=== PATIENT | male | born 1960 | race Caucasian/White ===

== ENCOUNTER 2017-03-20 11:18 | Emergency (ER) | payer BC ==
[~2017-03-20] VITALS: Ht 167.6 cm; Wt 70.3 kg
[2017-03-20 11:18] VITALS: BP 126/76
== END 2017-03-20 11:58 | disposition home or self-care (01) ==
LOC: ER 11:22
DX: J06.9 Acute upper respiratory infection, unspecified (principal)
CPT/HCPCS: 99283; A4606; Z7610

== ENCOUNTER 2018-05-12 23:33 | Emergency (ER) | payer BC, OTHER ==
[~2018-05-12] VITALS: Ht 167.6 cm; Wt 73.5 kg
--- NOTE | 2018-05-13 | NUR ---
PT BIBSELF COMPLAINING OF COUGH AND SORE THROAT X4 DAYS AND FEVER X2 DAYS. PT STATES HIGHEST AT HOME WAS 102. PT'S CURRENT TEMP 103.3, MD AWARE. PT AAOX4. RESPIRATIONS EVEN AND UNLABORED. SKIN WARM AND INTACT. WILL CONTINUE TO MONITOR
[2018-05-13] MEDS ORDERED: ACETAMINOPHEN ES 500 MG TABLET ONE (00:07)
--- NOTE | 2018-05-13 00:10 | NUR ---
FLU SWAB COLLECTED AND SENT TO LAB
--- NOTE | 2018-05-13 00:15 | NUR ---
PT PLACED IN GOWN AND ICE PACKS APPLIED. WILL CONTINUE TO MONITOR
[2018-05-13] MEDS ORDERED: ACETAMINOPHEN 325 MG TABLET PO ONE (00:30)
--- NOTE | 2018-05-13 00:50 | NUR ---
STREP SWAB COLLECTED AND SENT TO LAB
[2018-05-13] MEDS ORDERED: IBUPROFEN 400 MG TABLET ONE (01:19)
[2018-05-13] MEDS ORDERED: IBUPROFEN 400 MG TABLET PO ONE (01:30)
--- NOTE | 2018-05-13 02:00 | NUR ---
RADIOLOGY AT BEDSIDE
--- NOTE | 2018-05-13 02:52 | NUR ---
Patient discharged to home in stable condition. Written and verbal after care instructions given. Patient verbalizes understanding of instruction. Pt ambulatory with a steady gait
[2018-05-13 02:53] VITALS: BP 113/68
[2018-05-13] MEDS ORDERED: IBUP-1955 PO (17:43)
== END 2018-05-13 02:55 | disposition home or self-care (01) ==
LOC: ER 23:36
DX: R50.9 Fever, unspecified (principal); J06.9 Acute upper respiratory infection, unspecified
CPT/HCPCS: 71045-TC; 86403-TC; 87070-TC; 87400; A4606; Z7610

== ENCOUNTER 2018-05-13 16:12 | Inpatient (IN) | payer BC, OTHER ==
[2018-05-13] VITALS (16 sets, daily range): BP systolic 109–124; BP diastolic 71–83
[~2018-05-13] VITALS: Ht 167.6 cm; Wt 72.6 kg
[2018-05-13] MEDS ORDERED: ONDANSETRON HCL/PF 4 MG/2 ML VIAL ONE (16:33)
--- NOTE | 2018-05-13 16:42 | NUR ---
PT BIB from home was here last night for fever , today c/o vomiting and abd pain and feeling weak " like passing out". alert and oriented x 4, verabally responsive and able to make needs known. on room air sating 98%, denies any pain at this time. Dr. Jasso at bedside for eval. kept comfortable, will continue to monitor accordingly.
[2018-05-13 16:54] LABS: CALCIUM, SERUM 8.4 mg/dL (8.5-10.1); CARBON DIOXIDE 25 mmol/L (21-32); CHLORIDE 100 mmol/L (98-107); CREATININE 1.7 mg/dL (0.6-1.3); GLUCOSE 171 mg/dL (74-106); POTASSIUM 3.9 mmol/L (3.5-5.1); SODIUM SERUM 136 mmol/L (136-145); UREA NITROGEN, BLOOD 15 mg/dL (7-18)
[2018-05-13 16:56] LABS: BASOPHILS % (AUTO) 0.1 % (0.0-2.0); HEMATOCRIT 45 % (39-51); HEMOGLOBIN 14.8 g/dL (13.5-17.5); LYMPHOCYTES # (AUTO) 1.1 /CMM (0.8-4.8); LYMPHOCYTES % (AUTO) 4.1 % (20.0-44.0); MEAN CORPUSCULAR HGB CONC 33 g/dl (31.0-36.0); MEAN CORPUSCULAR VOLUME 97 fL (80-96); MONOCYTES # (AUTO) 1.5 /CMM (0.1-1.30); NEUTROPHILS # (AUTO) 23.1 /CMM (1.8-8.9); NEUTROPHILS % (AUTO) 89.8 % (43.0-81.0); PLATELET COUNT (AUTO) 280 /CMM (150-450); RED BLOOD CELL COUNT(AUTO) 4.61 MIL/uL (4.5-6.0); WHITE BLOOD COUNT (AUTO) 25.7 K/uL (4.3-11.0)
[2018-05-13 17:00] LABS: ALANINE AMINOTRANSFERASE 46 U/L (12-78); ALKALINE PHOSPHATASE 100 U/L (46-116); ASPARTATE AMINOTRANSFERASE 47 U/L (15-37); BILIRUBIN,DIRECT 0.2 mg/dL (0.0-0.2); BILIRUBIN,TOTAL 0.7 mg/dL (0.2-1.0); TOTAL PROTEIN, SERUM 7.5 g/dL (6.4-8.2)
[2018-05-13] MEDS ORDERED: IV NS 0.9% 1,000 ML BAG IV ONE (17:00)
[2018-05-13] MEDS ORDERED: ONDANSETRON HCL/PF 4 MG/2 ML VIAL IVP ONE (17:00)
[2018-05-13] MEDS ORDERED: IV NS 0.9% 1,000 ML IV ONE ×2 (17:00→17:30)
[2018-05-13 17:24] LABS: BAND % (MANUAL) 5 % (0.0-5.0); LYMPHOCYTES % (MANUAL) 7 % (16-48); MONOCYTES % (MANUAL) 1 % (0-11.0); NEUTROPHILS % (MANUAL) 87 (42-76)
[2018-05-13] MEDS ORDERED: IBUP-1955 PO (17:43)
[2018-05-13] MEDS ORDERED: PIPERACILLIN /TAZOBACTAM 3.375 G in IV D5W 50 ML IV ONE (18:00)
--- NOTE | 2018-05-13 18:36 | NUR ---
Jus Evans EMPLOYEE OPERATIONS EXAMINER at bedside for central line insertion, family at bedside.
[2018-05-13] MEDS ORDERED: LIDOCAINE /MPF 1% VIAL 5 ML VIAL ONE (18:57)
--- NOTE | 2018-05-13 19:17 | NUR ---
central line inserted by Jus Evans NP.
--- NOTE | 2018-05-13 19:18 | NUR ---
Report given to heather SIGALA for vijay.
[2018-05-13] MEDS ORDERED: NOREPINEPHRINE 4 MG/4 ML AMPUL IV ONE ×2 (19:20→19:21)
[2018-05-13] MEDS ORDERED: NOREPINEPHRINE 8 MG in IV D5W 500 ML IV PRN ×2 (19:30→20:00)
[2018-05-13] MEDS ORDERED: Z GUARD REMEDY 2 OZ OINT TP PRN (20:00)
[2018-05-13] MEDS ORDERED: ONDANSETRON HCL/PF 4 MG/2 ML VIAL IVP PRN (20:00)
--- NOTE | 2018-05-13 20:04 | NUR ---
REPORT GIVEN TO ZAKIYA RAMOS FOR [facility]
--- NOTE | 2018-05-13 20:30 | NUR ---
BOX OFFICE MANAGERCREW LEAD NOTES RECEIVED PATIENT FROM ER VIA [facility]. PATIENT IS AWAKE, ALERT AND ORIENTED X4, ABLE TO VERBALIZE NEEDS. BREATHING EVEN AND NONLABORED, PLACED ON O2 VIA NC FOR COMFORT, SPO2 WNL. LEFT IJ PATENT AND INTACT, ALL PORTS FLUSHED WITH NS, ONGOING LEVOPHED DRIP CURRENTLY INFUSING @ 5MCG, WILL MONITOR BP CLOSELY. ORDERS FOR IV FLUIDS AND CVP MONITORING, WILL INITIATE. PLAN OF CARE DISCUSSED WITH THE PATIENT, WHOM VERBALIZES UNDERSTANDING. CALL LIGHT LEFT WITHIN EASY REACH, BED IN LOWEST AND LOCKED POSITION. WILL CONTINUE TO CLOSELY MONITOR THE PATIENT
[2018-05-13] MEDS: IV NS 0.9% 1,000 ML IV PRN (20:56)
[2018-05-13] MEDS: ENOXAPARIN SODIUM 40 MG/0.4 ML DISP.SYRIN SQ SCH (21:01)
[2018-05-13 21:14] LABS: HEMATOCRIT 37 % (39-51); HEMOGLOBIN 12.2 g/dL (13.5-17.5); LYMPHOCYTES % (AUTO) 3.8 % (20.0-44.0); MEAN CORPUSCULAR HGB CONC 33 g/dl (31.0-36.0); MEAN CORPUSCULAR VOLUME 96 fL (80-96); MONOCYTES # (AUTO) 1.3 /CMM (0.1-1.30); NEUTROPHILS # (AUTO) 23.3 /CMM (1.8-8.9); NEUTROPHILS % (AUTO) 91.2 % (43.0-81.0); PLATELET COUNT (AUTO) 284 /CMM (150-450); RED BLOOD CELL COUNT(AUTO) 3.83 MIL/uL (4.5-6.0); WHITE BLOOD COUNT (AUTO) 25.5 K/uL (4.3-11.0)
[2018-05-13 21:27] LABS: ALBUMIN 2.3 g/dL (3.4-5.0); BILIRUBIN,TOTAL 1.3 mg/dL (0.2-1.0); CREATININE 1.8 mg/dL (0.6-1.3); MAGNESIUM 1.5 mg/dL (1.8-2.4); PHOSPHORUS 1.7 mg/dL (2.5-4.9); POTASSIUM 4.6 mmol/L (3.5-5.1); TOTAL PROTEIN, SERUM 5.9 g/dL (6.4-8.2)
[2018-05-13] MEDS ORDERED: PIPERACILLIN /TAZOBACTAM 3.375 G VIAL IV ONE (23:02)
[2018-05-13] MEDS: PIPERACILLIN /TAZOBACTAM 3.375 G in IV D5W 50 ML IV SCH (23:03)
[2018-05-14] VITALS (84 sets, daily range): BP systolic 91–133; BP diastolic 55–85
[2018-05-14 02:34] LABS: APPEARANCE,URINE CLEAR (CLEAR); BILIRUBIN,URINE NEGATIVE (NEGATIVE); BLOOD, URINE TRACE-INTA Ery/uL (NEGATIVE); COLOR,URINE YELLOW (YELLOW); KETONES,URINE NEGATIVE (NEGATIVE); LEUKOCYTE ESTERASE ,URINE NEGATIVE (NEGATIVE); NITRITE, URINE NEGATIVE (NEGATIVE); PROTEIN,URINE NEGATIVE (NEGATIVE); UGLUCOSE NEGATIVE (NEGATIVE); UROBILINOGEN,URINE 0.2 EU/dL (0.2)
[2018-05-14 02:36] LABS: BACTERIA,URINE Rare /HPF (None Seen); RBC,URINE 0-2 /HPF (0-2); SQUAMOUS EPITHELIAL CELL,UR Rare /HPF (None Seen); WBC,URINE 0-2 /HPF (0-3)
[2018-05-14] MEDS ORDERED: PIPERACILLIN /TAZOBACTAM 3.375 G VIAL IV ONE (04:24)
[2018-05-14] MEDS ORDERED: MORPHINE SULFATE INJ 4 MG/ML DISP.SYRIN ONE (04:25)
[2018-05-14] MEDS: MORPHINE SULFATE INJ 2 MG/ML DISP.SYRIN IV PRN (04:26)
--- NOTE | 2018-05-14 04:38 | NUR ---
CROTCH BREAKER NOTES MORPHINE 2MG OUT OF STOCK, 4MG OVERRIDE PERFORMED BY CHARGE NURSE ED, 2 MG WASTED. WILL ADMINISTER AND CONTINUE CLOSE MONITORING
[2018-05-14 04:45] LABS: BASOPHILS % (AUTO) 0.1 % (0.0-2.0); HEMATOCRIT 37 % (39-51); HEMOGLOBIN 12.5 g/dL (13.5-17.5); LYMPHOCYTES # (AUTO) 1.3 /CMM (0.8-4.8); LYMPHOCYTES % (AUTO) 5.1 % (20.0-44.0); MEAN CORPUSCULAR HGB CONC 34 g/dl (31.0-36.0); MEAN CORPUSCULAR VOLUME 96 fL (80-96); MONOCYTES # (AUTO) 1.3 /CMM (0.1-1.30); MONOCYTES % (AUTO) 4.9 % (2.0-12.0); NEUTROPHILS # (AUTO) 23.9 /CMM (1.8-8.9); NEUTROPHILS % (AUTO) 89.9 % (43.0-81.0); PLATELET COUNT (AUTO) 297 /CMM (150-450); RED BLOOD CELL COUNT(AUTO) 3.88 MIL/uL (4.5-6.0); WHITE BLOOD COUNT (AUTO) 26.6 K/uL (4.3-11.0)
[2018-05-14] MEDS: PIPERACILLIN /TAZOBACTAM 3.375 G in IV D5W 50 ML IV SCH (05:08)
[2018-05-14 05:09] LABS: ALBUMIN 2.4 g/dL (3.4-5.0); BILIRUBIN,TOTAL 0.7 mg/dL (0.2-1.0); CREATININE 1.3 mg/dL (0.6-1.3); MAGNESIUM 1.9 mg/dL (1.8-2.4); PHOSPHORUS 2.1 mg/dL (2.5-4.9); TOTAL PROTEIN, SERUM 6.5 g/dL (6.4-8.2)
[2018-05-14 05:14] LABS: THYROID STIMULATING HORMONE 0.263 uIU/mL (0.358-3.74)
[2018-05-14] MEDS: ACETAMINOPHEN 325 MG TABLET PO PRN ×2 (05:37→15:49)
--- NOTE | 2018-05-14 07:00 | NUR ---
FLIGHT MANAGER CLOSING NOTES PATIENT RESTING COMFORTABLY IN BED. BEDSIDE REPORT GIVEN TO NURSE VOSS. PATIENT CONTINUES ON LEVOPHED DRIP, TITRATED DOWN TO 2MCG/MIN
--- NOTE | 2018-05-14 07:10 | NUR ---
RN INITIAL NOTES: Rec'd pt on bed, A/O x 4, denies any pain & discomfort at this time. Pt on NC at 2lpm, sating at 98%. On telemonitor, ST 105. Has L IJ TLC w/ NS x 100 cc/hr & Levo Drip x 2mcg/min. Pt also has 2 SL R AC G22 & L AC G20, flushing well w/ no s/sx of infection/infiltration. Will provide comfort & safety measures. Bed kept low & in locked pos. Call light w/in reach. Will continue to monitor & attend pt needs.
[2018-05-14] MEDS: PIPERACILLIN /TAZOBACTAM 3.375 G in IV D5W 100 ML IV SCH ×2 (08:18→17:03)
[2018-05-14] MEDS: IV NS 0.9% 1,000 ML IV PRN ×2 (08:26→18:31)
--- NOTE | 2018-05-14 08:45 | NUR ---
PINK ALERTS cleared on EMAR for pt's safety.
[2018-05-14] MEDS ORDERED: K PHOS NEUTRAL 250 MG TABLET PO ONE (10:30)
[2018-05-14] MEDS ORDERED: PIPERACILLIN /TAZOBACTAM 3.375 G in IV D5W 50 ML IV SCH (12:00)
--- NOTE | 2018-05-14 13:46 | NUR ---
Pt seen & examined by Dr. Shiva bunn/ amrtha to do Rapid Influenza Antigen A+B of the nasopharynx. Specimen collected & taken by [facility]. Addendum: 05/14/18 at 1516 by BIPIN OSBORNE RN Tried calling Julia's extension but no one is answering. Informed her via text.
--- NOTE | 2018-05-14 17:30 | NUR ---
Pt seen & examined by CELINE Garrett w/ orders to do bladder scanning. >600cc on bladder scan, peed 450cc. Per CELINE Garrett insert IFC. Pt made aware & agreed.
--- NOTE | 2018-05-14 18:47 | NUR ---
RN CLOSING NOTES: Pt remains A/O x 4. Pt tolerated NC at 2lpm, no SOB. On telemonitor, still ST 103. L IJ TLC w/ NS x 100 cc/hr & Levo Drip off at 2pm. Pt also has LFA G20, flushing well w/ no s/sx of infection/infiltration. Pt tolerated IFC as ordered. Kept well rested. Needs attended. Bed kept low & in locked pos. Call light w/in reach. Will endorse to PM RN for [facility].
--- NOTE | 2018-05-14 19:30 | NUR ---
IV THERAPY NURSE INITIAL SHIFT NOTES RECEIVED PATIENT IN BED, AWAKE, ALERT AND ORIENTED X4, ABLE TO VERBALIZE NEEDS, PATIENT'S AT BEDSIDE. PLAN OF CARE DISCUSSED WITH PATIENT AND FAMILY, BOTH VERBALIZING UNDERSTANDING REGARDING THE PLAN OF CARE, ALL PERTINENT QUESTIONS ANSWERED. TELMETRY MONITOR READS SINUS RHYTHM, HR 90 BPM AT THIS TIME. LEFT IJ TLC PATENT AND INTACT, ALL PORTS FLUSHED WITH NS, ONGOING IV FLUIDS PRESCRIBED. LEFT FA #20G PATENT AND INTACT, SL. BEE CATHETER DRAINING CLEAR YELLOW URINE VIA GRAVITY. BED IN LOWEST AND LOCKED POSITION, CALL LIGHT LEFT WITHIN EASY REACH. WILL CONTINUE TO CLOSELY MONITOR
[2018-05-14] MEDS: ENOXAPARIN SODIUM 40 MG/0.4 ML DISP.SYRIN SQ SCH (21:18)
[2018-05-15] VITALS (14 sets, daily range): BP systolic 96–125; BP diastolic 51–79
[2018-05-15] MEDS: PIPERACILLIN /TAZOBACTAM 3.375 G in IV D5W 100 ML IV SCH ×3 (00:10→17:26)
[2018-05-15] MEDS: ACETAMINOPHEN 325 MG TABLET PO PRN ×3 (00:26→17:26)
--- NOTE | 2018-05-15 01:00 | NUR ---
SHIFT PRODUCTION ASSOCIATE NOTES PATIENT NOTED WITH X1 EPISODE OF DIARRHEA, LIQUID BROWN STOOL, COLLECTED AND SENT TO LAB FOR TESTING FOR C DIFF. PATIENT PLACED ON ISOLATION FOR R/O C. DIFF. ISOLATION CART PLACED OUTSIDE OF ROOM, PATIENT'S INSTRUCTED TO WEAR PROPER PPE WHEN IN ROOM, VERBALIZING UNDERSTANDING. WILL CONTINUE TO CLOSELY MONITOR.
[2018-05-15] MEDS: IV NS 0.9% 1,000 ML IV PRN ×2 (04:26→16:05)
[2018-05-15 05:19] LABS: BASOPHILS # (AUTO) 0.1 /CMM (0.0-0.2); BASOPHILS % (AUTO) 0.5 % (0.0-2.0); EOSINOPHILS % (AUTO) 0.6 % (0.0-6.0); HEMATOCRIT 33 % (39-51); HEMOGLOBIN 10.9 g/dL (13.5-17.5); LYMPHOCYTES # (AUTO) 2.1 /CMM (0.8-4.8); LYMPHOCYTES % (AUTO) 12.2 % (20.0-44.0); MEAN CORPUSCULAR HGB CONC 34 g/dl (31.0-36.0); MEAN CORPUSCULAR VOLUME 96 fL (80-96); MONOCYTES # (AUTO) 0.9 /CMM (0.1-1.30); MONOCYTES % (AUTO) 5.1 % (2.0-12.0); NEUTROPHILS % (AUTO) 81.6 % (43.0-81.0); PLATELET COUNT (AUTO) 268 /CMM (150-450); RED BLOOD CELL COUNT(AUTO) 3.38 MIL/uL (4.5-6.0); WHITE BLOOD COUNT (AUTO) 17.2 K/uL (4.3-11.0)
[2018-05-15 05:38] LABS: CREATININE 1.1 mg/dL (0.6-1.3); MAGNESIUM 1.9 mg/dL (1.8-2.4); PHOSPHORUS 1.8 mg/dL (2.5-4.9); POTASSIUM 3.6 mmol/L (3.5-5.1)
[2018-05-15 06:34] LABS: BAND % (MANUAL) 15 % (0.0-5.0); LYMPHOCYTES % (MANUAL) 12 % (16-48); MONOCYTES % (MANUAL) 9 % (0-11.0); NEUTROPHILS % (MANUAL) 64 (42-76)
[2018-05-15] MEDS ORDERED: MORPHINE SULFATE INJ 4 MG/ML DISP.SYRIN ONE (06:36)
[2018-05-15] MEDS: MORPHINE SULFATE INJ 2 MG/ML DISP.SYRIN IV PRN (06:38)
--- NOTE | 2018-05-15 07:00 | NUR ---
BATCH TESTER CLOSING SHIFT NOTES BEDSIDE REPORT GIVEN TO DAY SHIFT NURSE FOR CONTINUITY OF CARE. NO FURTHER EPISODES OF DIARRHEA NOTED, PATIENT NOTING IMPROVEMENT IN HEADACHE AFTER MORPHINE IVP ADMINISTERED.
--- NOTE | 2018-05-15 07:20 | NUR ---
RN NOTES RECEIVED PATIENT IN BED, AWAKE, A/0 X4, ABLE TO MAKE NEEDS KNOWN, NOT ON ANY FORM OF DISTRESS, WITH OXYGEN SUPPORT VIA NASAL CANNULA AT 2LPM. SATING WELL. ON TELE MONITORING: SINUS TACHY HR 102 AT THIS TIME. LEFT IJ TLC IN PLACE AND INTACT, ALL PORTS FLUSHED WITH NS AND ARE ALL PATENT. WITH ONGOING IV FLUIDS RUNNING ORDERED. LEFT FA #20G IN PLACE, INTACT, PATENT UPON FLUSHING, SL. CENTRAL VENOUS PRESSURE CHECKED INITIALLY WITH ZULAY,RN- WAS AT 4 AT THIS TIME. WITH BEE CATHETER IN PLACE AND INTACT, DRAINING WELL TO CLEAR YELLOW URINE VIA GRAVITY. SAFETY MEASURES OBSERVED AND MAINTAINED, BED IN LOWEST AND LOCKED POSITION, CALL LIGHT PLACED WITHIN EASY REACH. PATIENT'S AT BEDSIDE. PLAN OF CARE DISCUSSED WITH PATIENT AND FAMILY, BOTH VERBALIZING UNDERSTANDING, ALL QUESTIONS ADDRESSED, ENCOURAGE TO VERBALIZE ANY CONCERN, WILL CONTINUE TO MONITOR CLOSELY
[2018-05-15] MEDS ORDERED: MORPHINE SULFATE INJ 4 MG/ML DISP.SYRIN IV PRN (08:30)
[2018-05-15] MEDS ORDERED: HYDROMORPHONE 1 MG/1 ML DISP.SYRIN IV PRN (08:30)
--- NOTE | 2018-05-15 12:10 | NUR ---
RN NOTES PATIENT TRANSFERRED OUT TO LOWER LEVEL ACUITY.
[2018-05-15] MEDS ORDERED: K PHOS NEUTRAL 250 MG TABLET PO ONE (13:30)
[2018-05-15] MEDS ORDERED: SALINE NASAL SPRAY 0.65% 1 BOTTLE BOTTLE NS PRN (16:30)
--- NOTE | 2018-05-15 19:47 | NUR ---
RN NOTES PATIENT ENDORSED FOR CONTINUITY OF CARE. NO ACUTE CHANGES WITHIN THE SHIFT. ALL NURSING NEEDS ATTENDED AND MET. SAFETY PRECAUTIONS IN PLACE AT ALL TIMES. CALL LIGHT WITHIN REACH
--- NOTE | 2018-05-15 20:30 | NUR ---
RN OPENING NOTES REPORT RECEIVED FROM NEGRA RN. PATIENT A/A/O X3, ABLE TO MAKE NEEDS KNOWN. BREATHING EVEN & UNLABORED, TOLERATING ROOM AIR. DENIES SOB OR DIFFICULTY BREATHING. ON TELE W/ SINUS RHYTHM, HR 86. LEFT HAND IV #20 & LEFT IJ INTACT & PATENT W/ DRESSING CDI & IVF NS INFUSING WELL @ 100 ML/HR. BEE CATH DRAINING YELLOW URINE. DENIES ANY PAIN OR DISCOMFORT @ THIS TIME. SAFETY MEASURES IN PLACE W/ SIDE RAILS UP & BED LOCKED IN LOWEST POSITION. INSTRUCTED TO USE CALL LIGHT FOR ASSISTANCE. @ BEDSIDE. WILL CONTINUE TO MONITOR.
[2018-05-15] MEDS: TAMSULOSIN 0.4 MG CAP.SR.24H PO SCH (22:24)
[2018-05-15] MEDS: ENOXAPARIN SODIUM 40 MG/0.4 ML DISP.SYRIN SQ SCH (22:25)
[2018-05-16] VITALS: BP 111/75
[2018-05-16] MEDS: PIPERACILLIN /TAZOBACTAM 3.375 G in IV D5W 100 ML IV SCH ×3 (02:02→16:46)
[2018-05-16] MEDS: ACETAMINOPHEN 325 MG TABLET PO PRN ×2 (03:05→15:13)
[2018-05-16 04:00] VITALS: BP 109/70
[2018-05-16] MEDS: IV NS 0.9% 1,000 ML IV PRN ×2 (04:59→15:16)
[2018-05-16 06:32] LABS: BASOPHILS # (AUTO) 0.1 /CMM (0.0-0.2); BASOPHILS % (AUTO) 0.6 % (0.0-2.0); EOSINOPHILS % (AUTO) 1.4 % (0.0-6.0); HEMATOCRIT 34 % (39-51); HEMOGLOBIN 11.4 g/dL (13.5-17.5); LYMPHOCYTES # (AUTO) 2.2 /CMM (0.8-4.8); LYMPHOCYTES % (AUTO) 17.9 % (20.0-44.0); MEAN CORPUSCULAR HGB CONC 33 g/dl (31.0-36.0); MEAN CORPUSCULAR VOLUME 96 fL (80-96); MONOCYTES # (AUTO) 0.6 /CMM (0.1-1.30); MONOCYTES % (AUTO) 5.2 % (2.0-12.0); NEUTROPHILS # (AUTO) 9.1 /CMM (1.8-8.9); NEUTROPHILS % (AUTO) 74.9 % (43.0-81.0); PLATELET COUNT (AUTO) 325 /CMM (150-450); RED BLOOD CELL COUNT(AUTO) 3.57 MIL/uL (4.5-6.0); WHITE BLOOD COUNT (AUTO) 12.2 K/uL (4.3-11.0)
[2018-05-16 06:37] LABS: CALCIUM, SERUM 8.2 mg/dL (8.5-10.1); CREATININE 0.9 mg/dL (0.6-1.3); MAGNESIUM 1.9 mg/dL (1.8-2.4); PHOSPHORUS 2.6 mg/dL (2.5-4.9); POTASSIUM 3.6 mmol/L (3.5-5.1)
--- NOTE | 2018-05-16 07:38 | NUR ---
STOCKROOM SELECTOR NOTES RECEIVED PATIENT IN BED . PATIENT A/A/O X3, ABLE TO MAKE NEEDS KNOWN. AT BEDSIDE BREATHING EVEN & UNLABORED, TOLERATING ROOM AIR. DENIES SOB OR DIFFICULTY BREATHING. ON TELE W/ SINUS RHYTHM LEFT HAND IV #20 & LEFT IJ INTACT & PATENT W/ DRESSING CDI & IVF NS INFUSING WELL @ 100 ML/HR. BEE CATH DRAINING YELLOW URINE. DENIES ANY PAIN OR DISCOMFORT @ THIS TIME. SAFETY MEASURES IN PLACE W/ SIDE RAILS UP & BED LOCKED IN LOWEST POSITION. INSTRUCTED TO USE CALL LIGHT FOR ASSISTANCE. WILL CONTINUE TO MONITOR.PLAN OF CARE DISCUSSED WITH PATIENT
[2018-05-16 08:00] VITALS: BP 117/79
--- NOTE | 2018-05-16 11:53 | NUR ---
GAUGER CHIEF DELIVERY NOTE OFFERED TO SIT ON CHAIR ,STATED THAT WILL DO LATTER ,WILL CONT TO MONITOR, CONT ON IVF ORDERED, NOT IN DISTRESS , AT BEDSIDE Addendum: 05/16/18 at 1245 by KINGA KIRK RN OFFERED AGAIN TO SIT ON CHAIR AND HAVE LUNCH, STATED NOT NOW ,WILL TRY LATTER ON
[2018-05-16 12:00] VITALS: BP 117/78
--- NOTE | 2018-05-16 14:15 | NUR ---
BOX TOE MAKER NOTE PER DR FUNES OK TO REMOVE BEE CATH AND OK TO HAVE PT
--- NOTE | 2018-05-16 15:00 | NUR ---
WIRE PREPARATION MACHINE TENDER NOTE BEE CAT REMOVED ORDERED PT EVAL DONE, ABLE YO AMBULATE WELL WITH WALKER WILL F\U
[2018-05-16 16:00] VITALS: BP 120/80
--- NOTE | 2018-05-16 17:15 | NUR ---
LINING PRESSER NOTE ABLE TO URINATE WELL,200 ML OF YELLOW COLOR URINE KEEP CLEAN DRY ,ALL NEEDS ATTENDED
--- NOTE | 2018-05-16 18:30 | NUR ---
HORSER UP NOTE REFUSED TO HAVE DINNER, STATED THAT HIS WILL BRING FOOD,ALSO NO C\O PIAIN OR DISCOMFORT AT THIS TIME ,ON IVF ORDERED
[2018-05-16 20:00] VITALS: BP 121/81
--- NOTE | 2018-05-16 20:00 | NUR ---
TELE/RN NOTES: RECEIVED PT. IN BED W/ HOB ELEVATED. ON TELE MONITOR W/ SR 79. PRESENT AT BEDSIDE. A/O X 4. ABLE TO MAKE NEEDS KNOWN. HAS LIJ W/ TLC W/ DRESSING C/D/I W/ NO S/S OF INFECTION/INFILTRATION NOTED. HAS NS @ 100 ML/HR. CONTINENT OF B/B. ABLE TO MAKE NEEDS KNOWN. CALL LIGHT W/ REACH. WILL CONTINUE TO MONITOR.
[2018-05-16] MEDS: ENOXAPARIN SODIUM 40 MG/0.4 ML DISP.SYRIN SQ SCH (20:54)
[2018-05-16] MEDS: TAMSULOSIN 0.4 MG CAP.SR.24H PO SCH (21:00)
[2018-05-17] VITALS: BP 115/73
[2018-05-17] MEDS: PIPERACILLIN /TAZOBACTAM 3.375 G in IV D5W 100 ML IV SCH ×2 (00:24→08:16)
[2018-05-17] MEDS: IV NS 0.9% 1,000 ML IV PRN (02:59)
[2018-05-17] MEDS: ACETAMINOPHEN 325 MG TABLET PO PRN (03:05)
[2018-05-17 04:00] VITALS: BP 115/70
[2018-05-17 06:40] LABS: BASOPHILS # (AUTO) 0.1 /CMM (0.0-0.2); BASOPHILS % (AUTO) 0.7 % (0.0-2.0); EOSINOPHILS % (AUTO) 3.1 % (0.0-6.0); HEMATOCRIT 35 % (39-51); HEMOGLOBIN 11.9 g/dL (13.5-17.5); LYMPHOCYTES # (AUTO) 2.3 /CMM (0.8-4.8); LYMPHOCYTES % (AUTO) 25.5 % (20.0-44.0); MEAN CORPUSCULAR HGB CONC 34 g/dl (31.0-36.0); MEAN CORPUSCULAR VOLUME 94 fL (80-96); MONOCYTES # (AUTO) 0.7 /CMM (0.1-1.30); MONOCYTES % (AUTO) 7.6 % (2.0-12.0); NEUTROPHILS # (AUTO) 5.6 /CMM (1.8-8.9); NEUTROPHILS % (AUTO) 63.1 % (43.0-81.0); PLATELET COUNT (AUTO) 347 /CMM (150-450); RED BLOOD CELL COUNT(AUTO) 3.72 MIL/uL (4.5-6.0); WHITE BLOOD COUNT (AUTO) 8.9 K/uL (4.3-11.0)
--- NOTE | 2018-05-17 07:15 | NUR ---
SENIOR UNDERWRITER OPENING NOTES RECEIVED PT ON BEDSIDE CHAIR.ALERT/ORIENTED X4.ON TELE HR IS 80'S WITH SR.ON ROOM AIR,TOLERATING WELL.NO SOB AND ACUTE DISTRESS NOTED.FAMILY IS AT BEDSIDE.CENTRAL LINE IS ON LEFT IJ AND IV LINE IS ON LEFT HAND G20 WITH NS @75ML/HR.SITE IS CLEAN,DRY AND INTACT. SAFETY IS MAINTAINED AT ALL TIMES.BED IS IN LOW POSITION AND LOCKED.CALL LIGHT IS WITHIN REACH.WILL CONTINUE TO MONITOR THE PT CLOSELY. NO PAIN NOTED AT THIS TIME.
--- NOTE | 2018-05-17 07:41 | NUR ---
TELE/RN NOTES: REPORT GIVEN TO NEXT SHIFT NURSE FOR [facility].
[2018-05-17 08:00] VITALS: BP 120/67
[2018-05-17 12:00] VITALS: BP 135/85
--- NOTE | 2018-05-17 12:50 | NUR ---
ANIMAL REHABILITATOR NOTES DR.SAM OTERO SEEN THE PT AND ORDERED TO D/C HOME AND D/C CENTRAL LINE FROM LEFT IJ.CENTRAL LINE IS REMOVED.NO BLEEDING NOTED AND PT TOLERATED WELL.PRESSURE DRESSING HAS DONE.PT IS LYING FLAT ON BED.FAMILY IS AT BEDSIDE.WILL CONTINUE TO MONITOR THE PT FOR 2HRS FOR ANY S/S BLEEDING.
[2018-05-17] MEDS ORDERED: LEVO750T21 PO (13:10)
--- NOTE | 2018-05-17 14:30 | NUR ---
MS RN NOTES CALLED THE [facility],[place] AND SPOKE TO PHARMACIST REGARDING THE PRESCRIPTION OF TAB LEVAQUIN 750MG PO OD X5DAYS.PT AND FAMILY MADE AWARE ABOUT THE INTEGRITY SPECIALIST.
--- NOTE | 2018-05-17 14:50 | NUR ---
MS CORPORATE LEGAL SECRETARY NOTES PT IS READY TO DISCHARGE HOME.ALL THE DISCHARGE MEDICATIONS AND PRESCRIPTIONS EXPLAINED TO THE PT AND FAMILY.VITAL SIGNS CHECKED AND RECORDED,IT IS WNL.SKIN ASSESSMENT IS DONE AND NOTED SKIN IS INTACT.IV LINE FROM LEFT HAND G20 IS REMOVED AND NO BLEEDING NOTED.CHECKED THE SITE OF LEFT IJ,NO BLEEDING AND PRESSURE DRESSING IS PRESENT.PT VERBALIZED CAN WALK WITHOUT ASSISTANCE TO THE PARKING LOT WITH THE ,MS.SALGUERO MCCALL VIA PRIVATE CAR.NO DIZZY AND ACUTE DISTRESS NOTED.NO COMPLICATIONS NOTED.
== END 2018-05-17 14:50 | disposition home or self-care (01) | DRG 871 ==
LOC: ER 16:17 → ICU 19:30 → TELE1 05-15 11:53 → MEDSG1 05-17 13:51
PROVIDERS: ADMIT Nurse Practitioner Acute Care
PROC: B544ZZA Ultrasonography of Left Jugular Veins, Guidance (ICD-10-PCS; principal; 2018-05-13)
PROC: 05HN33Z Insertion of Infusion Device into Left Internal Jugular Vein, Percutaneous Approach (ICD-10-PCS; principal; 2018-05-13)
DX: A41.9 Sepsis, unspecified organism (principal); N17.0 Acute kidney failure with tubular necrosis; R65.21 Severe sepsis with septic shock; J18.9 Pneumonia, unspecified organism; E87.2 Acidosis; E46 Unspecified protein-calorie malnutrition; E83.39 Other disorders of phosphorus metabolism; E83.42 Hypomagnesemia; D64.9 Anemia, unspecified; E86.0 Dehydration; I10 Essential (primary) hypertension; Z68.25 Body mass index [BMI] 25.0-25.9, adult; J06.9 Acute upper respiratory infection, unspecified; R33.9 Retention of urine, unspecified
CPT/HCPCS: 36415; 71045-TC; 80048-TC; 80053-TC; 80061-TC; 80076-TC; 81000-TC; 83540-TC; 83605-TC; 83735-TC; 84100-TC; 84443-TC; 84484-TC; 85025-TC; 85730-TC; 87040-TC; 87081-TC; 87086-TC; 87400; 93307-TC; A4606; A6402; C1751; G0378; J1650; J2270; J2405; J2543; J3490; J7030; J7040; J7060; Z7610

== ENCOUNTER 2019-02-06 08:44 | Outpatient (CLI) | payer BC, OTHER ==
[~2019-02-06 08:44] MED LIST: IBUP-1955 PO; LEVO750T21 PO
[2019-02-06 08:59] VITALS: BP 129/79
[2019-02-06 10:03] LABS: BASOPHILS % (AUTO) 0.3 % (0.0-2.0); EOSINOPHILS % (AUTO) 3.6 % (0.0-6.0); HEMATOCRIT 42 % (39-51); HEMOGLOBIN 14.3 g/dL (13.5-17.5); LYMPHOCYTES # (AUTO) 2.1 /CMM (0.8-4.8); MEAN CORPUSCULAR HGB CONC 34 g/dl (31.0-36.0); MEAN CORPUSCULAR VOLUME 96 fL (80-96); MONOCYTES # (AUTO) 0.5 /CMM (0.1-1.30); MONOCYTES % (AUTO) 6.9 % (2.0-12.0); NEUTROPHILS # (AUTO) 3.9 /CMM (1.8-8.9); NEUTROPHILS % (AUTO) 58.2 % (43.0-81.0); PLATELET COUNT (AUTO) 306 /CMM (150-450); RED BLOOD CELL COUNT(AUTO) 4.41 MIL/uL (4.5-6.0); WHITE BLOOD COUNT (AUTO) 6.7 K/uL (4.3-11.0)
[2019-02-06 10:09] LABS: APPEARANCE,URINE CLEAR (CLEAR); BILIRUBIN,URINE NEGATIVE (NEGATIVE); BLOOD, URINE TRACE-INTA Ery/uL (NEGATIVE); COLOR,URINE YELLOW (YELLOW); KETONES,URINE NEGATIVE (NEGATIVE); LEUKOCYTE ESTERASE ,URINE NEGATIVE (NEGATIVE); NITRITE, URINE NEGATIVE (NEGATIVE); PROTEIN,URINE NEGATIVE (NEGATIVE); UGLUCOSE NEGATIVE (NEGATIVE); UROBILINOGEN,URINE 0.2 EU/dL (0.2)
[2019-02-06 10:12] LABS: ALBUMIN 3.8 g/dL (3.4-5.0); BILIRUBIN,TOTAL 0.3 mg/dL (0.2-1.0); CALCIUM, SERUM 8.6 mg/dL (8.5-10.1); TOTAL PROTEIN, SERUM 7.3 g/dL (6.4-8.2)
[2019-02-06 10:25] LABS: BACTERIA,URINE None seen /HPF (None Seen); RBC,URINE 0-2 /HPF (0-2); SQUAMOUS EPITHELIAL CELL,UR None Seen /HPF (None Seen); WBC,URINE NONE SEEN /HPF (0-3)
[2019-02-06 10:28] LABS: PROSTATE SPECIFIC ANTIGEN SCR 0.54 ng/mL (0.00-4.00); THYROID STIMULATING HORMONE 0.807 uIU/mL (0.358-3.74)
== END 2019-02-06 23:59 | disposition home or self-care (01) ==
LOC: MSC 08:44
PROVIDERS: ATTEND Internal Medicine
DX: H81.10 Benign paroxysmal vertigo, unspecified ear (principal); D64.9 Anemia, unspecified
CPT/HCPCS: 36415; 80053-TC; 80061-TC; 81000-TC; 82728-TC; 83540-TC; 84153-TC; 84439-TC; 84443-TC; 85025-TC

== ENCOUNTER 2019-11-24 17:13 | Emergency (ER) | payer BC, OTHER ==
[~2019-11-24] VITALS: Ht 167.6 cm; Wt 72.6 kg
[2019-11-24 17:20] VITALS: BP 140/74
--- NOTE | 2019-11-24 17:50 | NUR ---
Patient discharged to home in stable condition. Written and verbal after care instructions given. Patient verbalizes understanding of instruction.
== END 2019-11-24 17:50 | disposition home or self-care (01) ==
LOC: ER 17:18
DX: Z11.59 Encounter for screening for other viral diseases (principal)
CPT/HCPCS: 99283; C9803; U0003

== ENCOUNTER 2020-01-23 14:55 | Emergency (ER) | payer OTHER ==
[~2020-01-23] VITALS: Ht 152.4 cm; Wt 72.6 kg
[2020-01-23 15:02] VITALS: BP 122/73
== END 2020-01-23 15:16 | disposition home or self-care (01) ==
LOC: ER 14:56
DX: Z20.828 Contact with and (suspected) exposure to other viral communicable diseases (principal)
CPT/HCPCS: 99283; C9803; U0003

== ENCOUNTER 2020-02-09 09:54 | Outpatient (CLI) | payer BC ==
[2020-02-09 11:07] LABS: BASOPHILS % (AUTO) 0.3 % (0.0-2.0); EOSINOPHILS % (AUTO) 4.1 % (0.0-6.0); HEMATOCRIT 44 % (39-51); HEMOGLOBIN 14.5 g/dL (13.5-17.5); LYMPHOCYTES # (AUTO) 2.6 /CMM (0.8-4.8); LYMPHOCYTES % (AUTO) 28.1 % (20.0-44.0); MEAN CORPUSCULAR HGB CONC 33 g/dl (31.0-36.0); MEAN CORPUSCULAR VOLUME 96 fL (80-96); MONOCYTES # (AUTO) 0.6 /CMM (0.1-1.30); NEUTROPHILS # (AUTO) 5.5 /CMM (1.8-8.9); NEUTROPHILS % (AUTO) 60.5 % (43.0-81.0); PLATELET COUNT (AUTO) 325 /CMM (150-450); RED BLOOD CELL COUNT(AUTO) 4.52 MIL/uL (4.5-6.0); WHITE BLOOD COUNT (AUTO) 9.1 K/uL (4.3-11.0)
[2020-02-09 12:00] LABS: APPEARANCE,URINE CLEAR (CLEAR); BILIRUBIN,URINE NEGATIVE (NEGATIVE); BLOOD, URINE SMALL Ery/uL (NEGATIVE); COLOR,URINE YELLOW (YELLOW); KETONES,URINE NEGATIVE (NEGATIVE); LEUKOCYTE ESTERASE ,URINE NEGATIVE (NEGATIVE); NITRITE, URINE NEGATIVE (NEGATIVE); PROTEIN,URINE NEGATIVE (NEGATIVE); UGLUCOSE NEGATIVE (NEGATIVE); UROBILINOGEN,URINE 0.2 EU/dL (0.2)
[2020-02-09 12:56] LABS: BILIRUBIN,TOTAL 0.6 mg/dL (0.2-1.0); CALCIUM, SERUM 8.6 mg/dL (8.5-10.1); POTASSIUM 3.5 mmol/L (3.5-5.1)
[2020-02-09 12:57] LABS: ALBUMIN 3.8 g/dL (3.4-5.0); TOTAL PROTEIN, SERUM 7.3 g/dL (6.4-8.2)
[2020-02-09 13:10] LABS: RBC,URINE 0-2 /HPF (0-2); SQUAMOUS EPITHELIAL CELL,UR Rare /HPF (None Seen); WBC,URINE 0-2 /HPF (0-3)
[2020-02-09 13:11] LABS: BACTERIA,URINE Rare /HPF (None Seen)
[2020-02-09 13:20] LABS: URIC ACID 5.8 mg/dL (2.6-7.2)
[2020-02-09 13:21] LABS: PROSTATE SPECIFIC ANTIGEN SCR 0.64 ng/mL (0.00-4.00); THYROID STIMULATING HORMONE 0.735 uIU/mL (0.358-3.74)
== END 2020-02-09 23:59 | disposition home or self-care (01) ==
LOC: LAB 09:54
PROVIDERS: ATTEND Legal Medicine
DX: I10 Essential (primary) hypertension (principal); E03.9 Hypothyroidism, unspecified; D64.9 Anemia, unspecified; E55.9 Vitamin D deficiency, unspecified; Z00.00 Encounter for general adult medical examination without abnormal findings
CPT/HCPCS: 36415; 80053-TC; 80061-TC; 81000-TC; 82306; 84153-TC; 84402; 84403; 84443-TC; 84550-TC; 85025-TC

== ENCOUNTER 2020-02-10 16:18 | Emergency (ER) | payer BC, OTHER ==
[~2020-02-10] VITALS: Ht 167.6 cm; Wt 70.3 kg
--- NOTE | 2020-02-10 16:40 | NUR ---
Patient came in to the er c/o dizziness and nausea vomiting. On room air, breathing evenly and unlabored. connected to the monitor and pulse ox. kept comfortable, will continue to monitor accordingly.
[2020-02-10 17:10] LABS: BASOPHILS % (AUTO) 0.4 % (0.0-2.0); EOSINOPHILS % (AUTO) 2.5 % (0.0-6.0); HEMATOCRIT 43 % (39-51); HEMOGLOBIN 14.4 g/dL (13.5-17.5); LYMPHOCYTES # (AUTO) 1.9 /CMM (0.8-4.8); LYMPHOCYTES % (AUTO) 19.7 % (20.0-44.0); MEAN CORPUSCULAR HGB CONC 33 g/dl (31.0-36.0); MEAN CORPUSCULAR VOLUME 97 fL (80-96); MONOCYTES # (AUTO) 0.6 /CMM (0.1-1.30); MONOCYTES % (AUTO) 5.8 % (2.0-12.0); NEUTROPHILS % (AUTO) 71.6 % (43.0-81.0); PLATELET COUNT (AUTO) 354 /CMM (150-450); RED BLOOD CELL COUNT(AUTO) 4.45 MIL/uL (4.5-6.0); WHITE BLOOD COUNT (AUTO) 9.8 K/uL (4.3-11.0)
[2020-02-10 17:26] LABS: CALCIUM, SERUM 9.2 mg/dL (8.5-10.1); CARBON DIOXIDE 28 mmol/L (21-32); CHLORIDE 102 mmol/L (98-107); GLUCOSE 138 mg/dL (74-106); POTASSIUM 3.8 mmol/L (3.5-5.1); SODIUM SERUM 139 mmol/L (136-145); UREA NITROGEN, BLOOD 14 mg/dL (7-18)
[2020-02-10] MEDS ORDERED: MECLIZINE HCL 25 MG TABLET ONE (17:28)
[2020-02-10] MEDS ORDERED: ONDANSETRON 4 MG TAB.RAPDIS ONE (17:28)
[2020-02-10] MEDS ORDERED: MECLIZINE HCL 12.5 MG TABLET PO ONE (17:30)
[2020-02-10] MEDS ORDERED: ONDANSETRON 4 MG TAB.RAPDIS SL ONE (17:30)
--- NOTE | 2020-02-10 17:33 | NUR ---
patient wheeled via gurney to ct scan
--- NOTE | 2020-02-10 19:21 | NUR ---
Patient discharged to home in stable condition. Written and verbal after care instructions given. Patient verbalizes understanding of instruction. IV removed. Catheter intact and site benign. Pressure and 4x4 applied to site. No bleeding noted.
[2020-02-10 19:22] VITALS: BP 131/75
== END 2020-02-10 19:22 | disposition home or self-care (01) ==
LOC: ER 16:18
DX: R42 Dizziness and giddiness (principal); R11.0 Nausea; Z79.899 Other long term (current) drug therapy
CPT/HCPCS: 36415; 70450; 80048; 82962; 84484; 85025; 93005; 99285; J8597; Q0162

== ENCOUNTER 2020-03-05 14:39 | Emergency (ER) | payer BC, OTHER ==
[~2020-03-05] VITALS: Ht 167.6 cm; Wt 70.8 kg
[2020-03-05 14:59] VITALS: BP 114/69
== END 2020-03-05 15:21 | disposition home or self-care (01) ==
LOC: ER 14:42
DX: Z20.828 Contact with and (suspected) exposure to other viral communicable diseases (principal)
CPT/HCPCS: 99283; C9803; U0003

== ENCOUNTER 2020-04-01 14:42 | Outpatient (CLI) | payer BC | END 2020-04-01 23:59 | disposition home or self-care (01) | LOC: XR 14:42 | PROVIDERS: ATTEND Legal Medicine | DX: M75.91 Shoulder lesion, unspecified, right shoulder (principal); M25.521 Pain in right elbow | CPT/HCPCS: 73030-TC; 73080-TC ==

== ENCOUNTER 2020-04-12 11:43 | Outpatient (CLI) | payer BC | END 2020-04-12 23:59 | disposition home or self-care (01) | LOC: MRI 11:43 | PROVIDERS: ATTEND Legal Medicine | DX: J32.4 Chronic pansinusitis (principal) | CPT/HCPCS: 70551-TC ==

== ENCOUNTER 2020-04-13 17:37 | Emergency (ER) | payer BC, OTHER ==
[~2020-04-13] VITALS: Ht 167.6 cm; Wt 70.3 kg
[2020-04-13 17:47] VITALS: BP 114/82
--- NOTE | 2020-04-13 19:00 | NUR ---
Patient discharged to home in stable condition. Written and verbal after care instructions given. Patient verbalizes understanding of instruction.
== END 2020-04-13 19:22 | disposition home or self-care (01) ==
LOC: ER 17:39
DX: Z20.828 Contact with and (suspected) exposure to other viral communicable diseases (principal)
CPT/HCPCS: 99283; C9803; U0003